=== PATIENT | male | born 1960 | race Caucasian/White ===

== ENCOUNTER 2019-12-29 23:25 | Emergency (ER) | payer OTHER ==
[~2019-12-29] VITALS: Ht 172.7 cm; Wt 87.5 kg
--- NOTE | 2019-12-29 23:25 | NUR ---
Patient ambulating with steady gait with at bedside. A&O x4. c/o facial swelling s/p ingesting advil PEN [employer]. Patient breathing even and unlabored. Denies any difficulty breathing or swallowing. sensation intact. Denies any cough or SOB. Speech is clear and able to make needs known / follow commands. Denies any / GI distress
--- NOTE | 2019-12-29 23:30 | NUR ---
Dr. Molina at bedside for MSE
[2019-12-29] MEDS ORDERED: diphenhydrAMINE 50 MG/1 ML VIAL IM ONE (23:45)
[2019-12-29] MEDS ORDERED: diphenhydrAMINE 50 MG/1 ML VIAL ONE (23:46)
--- NOTE | 2019-12-30 00:10 | NUR ---
Patient discharged to home in stable conditon. Written and verbal after care instructions given. Patient verbalizes understanding of instructions. Patient ambulating with steady gait. patient states "I feel much better".
[2019-12-30 00:19] VITALS: BP 112/61
== END 2019-12-30 00:10 | disposition home or self-care (01) ==
LOC: ER 23:28
DX: T78.3XXA Angioneurotic edema, initial encounter (principal); Z88.6 Allergy status to analgesic agent
CPT/HCPCS: 96372; 99283; J1200; A4663